=== PATIENT | female | born 1950 | race Caucasian/White ===

== ENCOUNTER → 2017-01-13 | Day surgery (SDC) | payer MEDICARE, BC ==
[~2017-01-13] VITALS: Ht 162.6 cm; Wt 99.2 kg
[~2017-01-13] MED LIST: AMOXICILLIN500 M1 PO; APRESOLINE10 MG PO; ASPIRIN LO-DOSE81 MG PO; CIPRO500 MG PO; COREG25 MG PO; DRISDOL 5050000 UNIT PO; FEOSOL325 MG PO; FERGON325 M1 PO; GENTAMICIN SULF30 GM TOP; LEVEMIR FL100 UNIT/1 SUB-Q; LEVOTHROID (S125 MCG PO; LIPITOR40 MG PO; MIRALAX17 GM PO; NEPHRON FA (NEP1 TAB PO; NORCO 5-325 MG1 TAB PO; NORCO 5-325 TA1 EACH PO; NORVASC10 MG PO; NOVOLOG FL100 UNIT/1 SUB-Q; PHOSLO667 MG PO; PRINIVIL OR ZES10 MG PO; TUMS REGULAR ST1 TAB PO
--- NOTE | ~2017-01-13 | OR ---
PATIENT'S NAME: CHI CORCORAN [facility] AGE: 66 Y [address] ROOM: [place] [address] LOCATION: [facility] [place] ADMIT DATE: 01/13/2017 OR/Procedure Report DISCHARGE DATE: FAMILY PHYSICIAN: PORTIA GREENBERG MD ATTENDING PHYSICIAN: Mary Avila SURGEON: Mary Avila MD BODY FORMER: DATE OF PROCEDURE: 01/13/2017 PREOPERATIVE DIAGNOSIS: History of end-stage renal disease with previous peritoneal dialysis catheter placement. POSTOPERATIVE DIAGNOSIS: History of end-stage renal disease with previous peritoneal dialysis catheter placement. PROCEDURE: Peritoneal dialysis catheter removal. FINDINGS: The catheter was intact after removal. ESTIMATED BLOOD LOSS: Minimal. COMPLICATIONS: None. INDICATIONS: The patient is a 66-year-old female who had initially presented with end-stage renal disease. She had to perform peritoneal dialysis for several months. However, her kidneys recovered and currently is not requiring dialysis because they had also noted some redness around the catheter and concerned that she could develop a catheter infection. With no need for dialysis, I was asked to remove this. We discussed the risks, benefits, and alternatives of removal with the patient, which include, but were not limited to, bleeding, infection, catheter shear herniations, and wound infection. She understood the risks and elected to proceed. DESCRIPTION OF PROCEDURE: The patient was taken to the operating room. She was supine, given IV sedation, subsequently intubated. Her abdomen was prepped and sterilely draped. An incision was created overlying her previous incision. Incision carried into the subcutaneous tissues and down to the catheter using electrocautery. The catheter was grasped and elevated. We continued dissection down to the fascia, where the cuff was identified. This was well-incorporated in the tissue. No gross signs of infection. This was dissected around circumferentially. Once this was completed, we were able to deliver the distal end of the catheter through the small incision. The catheter appeared intact. Proximally, we were able to dissect down to the more proximal cuff. This was dissected around circumferentially as well. The catheter was then cut just above this cuff. The distal end of the catheter PATIENT'S NAME: CHI CORCORAN [facility] AGE: 66 Y [address] ROOM: [place] [address] LOCATION: [facility] [place] ADMIT DATE: 01/13/2017 OR/Procedure Report DISCHARGE DATE: FAMILY PHYSICIAN: PORTIA GREENBERG MD ATTENDING PHYSICIAN: Mary Avila was able be removed through the skin and the rest of the catheter was brought out through the incision. The operative field was then inspected and it appeared hemostatic. The fascia was reapproximated with 0 Vicryl suture. Hemostasis was checked and had been obtained. The incision was closed with 4- 0 Monocryl suture. Steri-Strips and sterile dressings were placed. The patient was extubated and sent to recovery in good condition. MARY AVILA MD BJO/modl /[id number] d: 01/13/17 2323 t: 01/29/17 1121, OPERATIVE SUMMARY
== END | disposition disaster alternative care site (69) ==
LOC: GPOC 01-09 13:00 → GSDC 10:10 → GPOC 13:00
PROC: 0DPW0JZ Removal of Synthetic Substitute from Peritoneum, Open Approach (ICD-10-PCS; principal; 2017-01-13)
DX: Z49.02 Encounter for fitting and adjustment of peritoneal dialysis catheter (principal); E11.22 Type 2 diabetes mellitus with diabetic chronic kidney disease; N18.6 End stage renal disease
CPT/HCPCS: J0694; J7030